=== PATIENT | female | born 1965 | race Caucasian/White ===

== ENCOUNTER → 2016-12-08 | Outpatient (REF) | payer OTHER | LOC: M SFHCWAGY 14:44 | PROVIDERS: ATTEND Nurse Practitioner Family | DX: Z12.4 Encounter for screening for malignant neoplasm of cervix (principal); R35.0 Frequency of micturition; N88.8 Other specified noninflammatory disorders of cervix uteri | CPT/HCPCS: 87086; G0123 ==

== ENCOUNTER → 2016-12-08 | Outpatient (CLI) | payer BC ==
--- NOTE | 2016-12-08 15:23 | REPMRS ---
Patient History The patient states she had a clinical breast exam in 12/2016. Patient is postmenopausal and had first child at age 33. Family history of breast cancer in maternal aunt at age 48 and breast cancer in maternal aunt at age 50 or over. Digital Woman Screen Mammo: December 08, 2016 - Exam #: [id number] Bilateral CC and MLO view(s) were taken. Technologist: Maddie Cooley, Technologist Prior study comparison: November 18, 2015, digital woman screen mammo performed at [facility]. November 06, 2014, digital woman screen mammo performed at [facility]. FINDINGS: The breast tissue is extremely dense which could obscure a lesion on mammography. There is no evidence of cancer on this mammogram. No significant changes when compared with prior studies. ASSESSMENT: BI-RADS/ACR category 2 mammogram. Benign finding(s). Recommendation Routine screening mammogram of both breasts in 1 year (for women over age 40). This mammogram was interpreted with the aid of an FDA-approved computer-aided dectection system. Electronically Signed By: Torsten Kuo MD 12/08/16 [id number]
== END ==
LOC: M WHC 14:04
PROVIDERS: ATTEND Nurse Practitioner Family
DX: Z12.31 Encounter for screening mammogram for malignant neoplasm of breast (principal); Z78.0 Asymptomatic menopausal state; R92.8 Other abnormal and inconclusive findings on diagnostic imaging of breast

== ENCOUNTER → 2018-05-01 | Outpatient (REF) | payer OTHER | LOC: M LAB REF 10:20 | DX: R30.0 Dysuria (principal) ==

== ENCOUNTER → 2018-06-08 | Outpatient (CLI) | payer BC | LOC: M WHC 13:21 | DX: Z12.31 Encounter for screening mammogram for malignant neoplasm of breast (principal); Z78.0 Asymptomatic menopausal state | CPT/HCPCS: 77067 ==

== ENCOUNTER 2018-08-31 08:00 | Day surgery (SDC) | payer BC, OTHER ==
[~2018-08-31] VITALS: Ht 157.5 cm; Wt 68.5 kg
[~2018-08-31 08:00] MED LIST: LIDOCAINE 2% INJ 100 MG/5 ML SDV (FOR ANES.) As Ordered ONE; PROPOFOL 200 MG/20 ML VIAL As Ordered ONE
[2018-08-31] MEDS ORDERED: NS 1,000 ML IV ONE (08:15)
--- NOTE | 2018-08-31 09:32 | ROOR ---
Patient Name: October Cherrie Procedure Date: 08/31/2018 9:14 AM Date of : 1965 Age: 53 Room: [facility] Gender: Female Note Status: Finalized Procedure: Colonoscopy Indications: Screening for colorectal malignant neoplasm Providers: Clarke CABALLERO MD Referring MD: Rachell Capone NP Requesting Provider: Medicines: Monitored Anesthesia Care Complications: No immediate complications. Procedure: Pre-Anesthesia Assessment: - The heart rate, respiratory rate, oxygen saturations, blood pressure, adequacy of pulmonary ventilation, and response to care were monitored throughout the procedure. The Colonoscope was introduced through the anus and advanced to the terminal ileum, with identification of the appendiceal orifice and IC valve. The colonoscopy was performed without difficulty. The patient tolerated the procedure well. The quality of the bowel preparation was excellent. Findings: The perianal and digital rectal examinations were normal. Retroflexion in the right colon was performed. The entire examined colon appeared normal. Impression: - The entire colon is normal. - No specimens collected. Recommendation: - Repeat colonoscopy in 10 years for screening purposes. Clarke Caballero MD Clarke CABALLERO MD 08/31/2018 9:32:10 AM This report has been signed electronically. Number of Addenda: 0 Note Initiated On: 08/31/2018 9:14 AM Estimated Blood Loss: Estimated blood loss: none.
[2018-08-31 09:56] VITALS: BP 111/73
== END 2018-08-31 09:58 | disposition home or self-care (01) ==
LOC: M OPP 08:00
PROVIDERS: ATTEND Internal Medicine Gastroenterology
DX: Z12.11 Encounter for screening for malignant neoplasm of colon (principal)

== ENCOUNTER → 2019-02-04 | Outpatient (REF) | payer OTHER | LOC: M LAB REF 16:19 | PROVIDERS: ATTEND Physician Assistant | DX: N39.0 Urinary tract infection, site not specified (principal) ==

== ENCOUNTER → 2019-03-20 | Outpatient (REF) | payer OTHER ==
[2019-03-20 11:01] LABS: CHOLESTEROL RISK RATIO 2.924 (<5); THYROID STIMULATING HORMONE 1.98 uIU/ML (0.358-3.740)
== END ==
LOC: M SFHCPLAZ 08:50
PROVIDERS: ATTEND Family Medicine
DX: Z13.220 Encounter for screening for lipoid disorders (principal); E89.0 Postprocedural hypothyroidism

== ENCOUNTER → 2019-06-10 | Outpatient (CLI) | payer BC, OTHER | LOC: M PLALAB 14:28 | PROVIDERS: ATTEND Nurse Practitioner Family | DX: Z13.79 Encounter for other screening for genetic and chromosomal anomalies (principal) ==

== ENCOUNTER → 2019-06-10 | Outpatient (REF) | payer OTHER | LOC: M PLALAB 15:22 | PROVIDERS: ATTEND Nurse Practitioner Family | DX: Z12.4 Encounter for screening for malignant neoplasm of cervix (principal) | CPT/HCPCS: 87624; G0123 ==

== ENCOUNTER → 2019-06-10 | Outpatient (CLI) | payer BC, OTHER ==
--- NOTE | 2019-06-10 14:29 | REPMRS ---
Patient History The patient states she had a clinical breast exam in June 2019.Family history of breast cancer at age 48 in maternal aunt, breast cancer at age 50 or over in maternal aunt. No Hormone Replacement Therapy 3D TOMOSYNTHESIS WAS PERFORMED. [facility]%. Digital Woman Screen Mammo: June 10, 2019 - Exam #: [id number] Bilateral CC and MLO view(s) were taken. Technologist: Teresita Madden, Technologist Prior study comparison: June 08, 2018, bilateral digital woman screen mammo performed at [facility]. December 08, 2016, digital woman screen mammo performed at [facility]. FINDINGS: The breast tissue is heterogeneously dense. This may lower the sensitivity of mammography. There has been no change in the appearance of the mammogram from the prior studies. There is a moderate amount of residual fibroglandular tissue which is fairly symmetric. There is no interval development of dominant mass, areas of architectural distortion, or clustered microcalcification typical of malignancy. Assessment: BI-RADS/ACR category 1 mammogram. Negative Mammogram. Recommendation Routine screening mammogram in 1 year (for women over age 40). This mammogram was interpreted with the aid of an FDA-approved computer-aided dectection system. Electronically Signed By: Torsten Kuo MD 06/10/19 [id number]
== END ==
LOC: M WHC 13:04
PROVIDERS: ATTEND Nurse Practitioner Family
DX: Z12.31 Encounter for screening mammogram for malignant neoplasm of breast (principal)

== ENCOUNTER → 2020-06-11 | Outpatient (CLI) | payer BC, OTHER ==
--- NOTE | 2020-06-11 16:07 | REPMRS ---
Patient History The patient states she had a clinical breast exam in June 2020. Family history of breast cancer at age 48 in maternal aunt, breast cancer at age 50 or over in maternal aunt. No Hormone Replacement Therapy Digital Woman Screen Mammo: June 11, 2020 - Exam #: [id number] Bilateral CC and MLO view(s) were taken. Technologist: Vi Sharma Technologist Prior study comparison: June 10, 2019, bilateral digital woman screen mammo performed at [facility]. June 08, 2018, bilateral digital woman screen mammo performed at [facility]. December 08, 2016, digital woman screen mammo performed at [facility]. FINDINGS: The breast tissue is heterogeneously dense. This may lower the sensitivity of mammography. The Volpara volumetric breast density category is: C. There is a moderate amount of heterogeneously dense fibroglandular tissue which is fairly symmetric. There is no interval development of dominant mass, architectural distortion, or grouped microcalcification typical of malignancy. There has been no change in the appearance of the mammogram from the prior studies. 3-D tomosynthesis shows no additional findings. Assessment: BI-RADS/ACR category 1 mammogram. Negative Mammogram. Recommendation Routine screening mammogram of both breasts in 1 year (for women over age 40). This patient's [facility] Lifetime Breast Cancer RIsk is estimated at 15.5 %. This mammogram was interpreted with the aid of an FDA-approved computer-aided dectection system. Electronically Signed By: Amanuel Hutson MD 06/11/20 [id number]
== END ==
LOC: M WHC 13:29
PROVIDERS: ATTEND Nurse Practitioner Family
DX: Z12.31 Encounter for screening mammogram for malignant neoplasm of breast (principal)

== ENCOUNTER → 2021-12-30 | Outpatient (REF) | payer BC, OTHER | LOC: M SFHCWAGY 12:49 | PROVIDERS: ATTEND Advanced Practice Midwife | DX: Z12.4 Encounter for screening for malignant neoplasm of cervix (principal) | CPT/HCPCS: 87624; G0123 ==

== ENCOUNTER → 2021-12-30 | Outpatient (CLI) | payer BC, OTHER | LOC: M WHC 08:22 | PROVIDERS: ATTEND Advanced Practice Midwife | DX: Z12.31 Encounter for screening mammogram for malignant neoplasm of breast (principal) ==

== ENCOUNTER → 2023-08-16 | Outpatient (CLI) | payer BC, OTHER ==
[2023-08-16 14:28] LABS: BASO # 0.1 10^3/uL (0.0-0.2); BASO % 0.9 % (0.0-1.0); EOS # 0.2 10^3/uL (0.0-0.5); EOS % 3.6 % (0.0-3.0); HEMATOCRIT 42.5 % (36.0-47.0); HEMOGLOBIN 13.7 g/dl (12.0-15.5); LYMPH # 1.2 10^3/uL (1.5-5.0); LYMPH % 22.4 % (24.0-44.0); MEAN CORPUSCULAR HEMOGLOBIN 30.9 pg (27.0-33.0); MEAN CORPUSCULAR HGB CONC 32.2 g/dl (32.0-36.5); MEAN CORPUSCULAR VOLUME 95.7 fl (80.0-96.0); MONO # 0.6 10^3/uL (0.0-0.8); MONO % 10.5 % (2.0-8.0); NEUTROPHILS # 3.3 10^3/uL (1.5-8.5); NEUTROPHILS % 62.2 % (36.0-66.0); PLATELET COUNT, AUTOMATED 216 10^3/uL (150-450); RED BLOOD COUNT 4.44 10^6/uL (4.00-5.40); WHITE BLOOD COUNT 5.3 10^3/uL (4.0-10.0)
[2023-08-16 14:50] LABS: LIPASE 27 U/L (12-53)
[2023-08-16 14:53] LABS: ALKALINE PHOSPHATASE 70 U/L (46-116); ALT/SGPT 28 U/L (7.0-40); AST/SGOT 19 U/L (<34); BILIRUBIN,TOTAL 0.5 MG/DL (0.3-1.2); BLOOD UREA NITROGEN 10 MG/DL (9-23); CALCIUM LEVEL 9.7 MG/DL (8.5-10.1); CARBON DIOXIDE LEVEL 29 MMOL/L (20-31); CHLORIDE LEVEL 109 MMOL/L (98-107); CHOLESTEROL LEVEL 211 MG/DL (<200); CHOLESTEROL RISK RATIO 3.17 (<5); CREATININE FOR GFR 0.71 MG/DL (0.55-1.30); GLOMERULAR FILTRATION RATE > 60.0 (>51); GLUCOSE, FASTING 88 MG/DL (60-100); HDL CHOLESTEROL 66.4 MG/DL (>40); HEMOGLOBIN A1c 5.2 % (4.0-6.0); LDL CHOLESTEROL 130.6 MG/DL (<100); NON-HDL-C 144.6 MG/DL; POTASSIUM SERUM 4.5 MMOL/L (3.5-5.1); SODIUM LEVEL 141 MMOL/L (136-145); TOTAL PROTEIN 6.8 G/DL (5.7-8.2); TRIGLYCERIDES LEVEL 70 MG/DL (<150)
[2023-08-16 14:58] LABS: THYROID STIMULATING HORMONE 2.484 uIU/ML (0.55-4.78); TOTAL 25(OH) VITAMIN D 16.6 NG/ML (20.0-100.0)
[2023-08-16 15:00] LABS: FREE T4 1.03 NG/DL (0.89-1.76)
== END ==
LOC: M PLALAB 09:35
PROVIDERS: ATTEND Nurse Practitioner Family
DX: E78.2 Mixed hyperlipidemia (principal); R53.83 Other fatigue; E55.9 Vitamin D deficiency, unspecified; R10.9 Unspecified abdominal pain; Z13.1 Encounter for screening for diabetes mellitus

== ENCOUNTER → 2023-11-10 | Outpatient (CLI) | payer BC | LOC: M WHC 15:30 | PROVIDERS: ATTEND Nurse Practitioner Family | DX: Z12.31 Encounter for screening mammogram for malignant neoplasm of breast (principal) ==

== ENCOUNTER → 2024-02-19 | Outpatient (CLI) | payer BC ==
[2024-02-19 10:58] LABS: ALBUMIN 3.9 G/DL (3.2-5.2); ALKALINE PHOSPHATASE 69 U/L (46-116); ALT/SGPT 17 U/L (7.0-40); AST/SGOT 15 U/L (<34); BILIRUBIN,TOTAL 0.6 MG/DL (0.3-1.2); BLOOD UREA NITROGEN 15 MG/DL (9-23); CALCIUM LEVEL 9.8 MG/DL (8.5-10.1); CARBON DIOXIDE LEVEL 31 MMOL/L (20-31); CHLORIDE LEVEL 105 MMOL/L (98-107); CHOLESTEROL LEVEL 195 MG/DL (<200); CREATININE FOR GFR 0.72 MG/DL (0.55-1.30); GLOMERULAR FILTRATION RATE > 60.0 (>51); GLUCOSE, FASTING 89 MG/DL (60-100); POTASSIUM SERUM 4.7 MMOL/L (3.5-5.1); SODIUM LEVEL 138 MMOL/L (136-145); TOTAL PROTEIN 6.8 G/DL (5.7-8.2); TRIGLYCERIDES LEVEL 75 MG/DL (<150)
[2024-02-19 11:00] LABS: TOTAL 25(OH) VITAMIN D 86.7 NG/ML (20.0-100.0)
== END ==
LOC: M PLALAB 08:14
PROVIDERS: ATTEND Nurse Practitioner Family
DX: E78.2 Mixed hyperlipidemia (principal); E55.9 Vitamin D deficiency, unspecified

== ENCOUNTER → 2024-11-13 | Outpatient (CLI) | payer BC ==
[2024-11-13 10:35] LABS: BASO # 0.1 10^3/uL (0.0-0.2); BASO % 1.4 % (0.0-1.0); EOS # 0.1 10^3/uL (0.0-0.5); EOS % 3.4 % (0.0-3.0); HEMATOCRIT 41.1 % (36.0-47.0); HEMOGLOBIN 13.5 g/dl (12.0-15.5); LYMPH # 0.9 10^3/uL (1.5-5.0); LYMPH % 24.9 % (24.0-44.0); MEAN CORPUSCULAR HEMOGLOBIN 30.8 pg (27.0-33.0); MEAN CORPUSCULAR HGB CONC 32.8 g/dl (32.0-36.5); MEAN CORPUSCULAR VOLUME 93.8 fl (80.0-96.0); MONO # 0.4 10^3/uL (0.0-0.8); MONO % 11.3 % (2.0-8.0); NEUTROPHILS # 2.1 10^3/uL (1.5-8.5); NEUTROPHILS % 58.7 % (36.0-66.0); PLATELET COUNT, AUTOMATED 177 10^3/uL (150-450); RED BLOOD COUNT 4.38 10^6/uL (4.00-5.40); WHITE BLOOD COUNT 3.5 10^3/uL (4.0-10.0)
[2024-11-13 11:04] LABS: ALKALINE PHOSPHATASE 74 U/L (35-104); ALT/SGPT 15 U/L (7.0-40); AST/SGOT 12 U/L (<34); BILIRUBIN,TOTAL 0.4 MG/DL (0.3-1.2); BLOOD UREA NITROGEN 14 MG/DL (9-23); CARBON DIOXIDE LEVEL 30 MMOL/L (20-31); CHLORIDE LEVEL 105 MMOL/L (98-107); CHOLESTEROL LEVEL 192 MG/DL (<200); CREATININE FOR GFR 0.76 MG/DL (0.55-1.30); GLOMERULAR FILTRATION RATE > 90.0 (>51); GLUCOSE, FASTING 89 MG/DL (60-100); HDL CHOLESTEROL 63.9 MG/DL (>40); LDL CHOLESTEROL 120.3 MG/DL (<100); NON-HDL-C 128.1 MG/DL; POTASSIUM SERUM 4.5 MMOL/L (3.5-5.1); SODIUM LEVEL 142 MMOL/L (136-145); TOTAL PROTEIN 6.9 G/DL (5.7-8.2); TRIGLYCERIDES LEVEL 39 MG/DL (<150)
== END ==
LOC: M PLALAB 08:20
PROVIDERS: ATTEND Nurse Practitioner Family
DX: E78.2 Mixed hyperlipidemia (principal); E55.9 Vitamin D deficiency, unspecified; F41.9 Anxiety disorder, unspecified

== ENCOUNTER → 2024-11-18 | Outpatient (REF) | payer BC ==
[2024-11-20 16:52] LABS: HPV APTIMA Not Detected (Not Detected)
== END ==
LOC: M SFHCPLAZ 17:45
PROVIDERS: ATTEND Nurse Practitioner Family
DX: Z12.4 Encounter for screening for malignant neoplasm of cervix (principal)